=== PATIENT | female | born 1955 | race Caucasian/White ===

== ENCOUNTER 2023-10-03 05:49 | Observation (INO) ==
[2023-10-03] MEDS ORDERED: Dexamethasone IV 4 MG/ML VIAL 1 ml VIAL ONE (06:34)
[2023-10-03] MEDS ORDERED: ceFAZolin 2 GM PREMIX 2 GM/50 ML BAG ONE (06:34)
[2023-10-03] MEDS ORDERED: Tranexamic Acid 1 GM/100ML BAG 2,000 MG/200 ML BAG IV ONE (06:34)
[2023-10-03] MEDS ORDERED: Famotidine IV 10 MG/ML 2 ml VIAL (20 mg) ONE (06:35)
[2023-10-03 06:37] LABS: Rapid COVID-19 Molecular Undetected (Undetected)
[2023-10-03] MEDS: Famotidine IV 10 MG/ML 2 ml VIAL (20 mg) IV ONE (06:55)
[2023-10-03] MEDS: Dexamethasone IV 4 MG/ML VIAL 1 ml VIAL IV SLOW PU ONE (06:55)
[2023-10-03] MEDS: Lactated Ringers 1000 ml BAG 1,000 ML IV SCH ×2 (06:56→12:12)
[2023-10-03] MEDS ORDERED: fentaNYL 100 mcg/2 ml 50 MCG/ML VIAL ONE ×5 (06:56→11:37)
[2023-10-03] MEDS ORDERED: Midazolam 2 mg/2 ml VIAL 1 mg/ml 2 ml VIAL (2 mg) ONE ×2 (06:56→07:02)
[2023-10-03] MEDS ORDERED: Sevoflurane BOTTLE ONE (07:03)
[2023-10-03] MEDS ORDERED: Lidocaine 2% PF 5 ML VIAL ONE (07:03)
[2023-10-03] MEDS ORDERED: ROPIVACAINE 5 MG/ML 30 ML BTL (0.5%) ONE ×2 (07:10→07:12)
[2023-10-03] MEDS ORDERED: Glycopyrrolate IV 0.2 MG/ML 1 ML VIAL ONE (08:12)
[2023-10-03] MEDS ORDERED: HYDROmorphone 0.5 MG/0.5 ML SYRINGE ONE ×2 (08:31→08:37)
[2023-10-03] MEDS ORDERED: Lactulose 30 ml UDC PO PRN (08:36)
[2023-10-03] MEDS ORDERED: Morphine 2 MG/ML SYRINGE IV PRN (08:36)
[2023-10-03] MEDS ORDERED: Magnesium Hydroxide LIQ 30 ML UDC PO PRN (08:36)
[2023-10-03] MEDS ORDERED: Ondansetron ODT 4 mg TAB 4 MG TAB PO PRN (08:36)
[2023-10-03] MEDS ORDERED: Calcium Carb (TUMS) 500 mg CHEW TAB PO PRN (08:36)
[2023-10-03] MEDS ORDERED: Ondansetron 4 mg VIAL 2 MG/ML 2 ml VIAL IV PRN (08:36)
[2023-10-03] MEDS ORDERED: Dexmedetomidine 200 mcg/2 ml 2 ml VIAL (200 mcg) ONE (08:44)
[2023-10-03] MEDS ORDERED: Morphine 4 MG/ML VIAL (1 ml) IV PRN (08:49)
[2023-10-03] MEDS ORDERED: Naloxone 0.4 mg VIAL 0.4 mg/ml 1 ml VIAL IV PRN (08:49)
[2023-10-03] MEDS ORDERED: Ondansetron 4 mg VIAL 2 MG/ML 2 ml VIAL ONE (08:52)
[2023-10-03] MEDS ORDERED: Labetalol IV 5 MG/ML 20 ml VIAL ONE (08:59)
[2023-10-03] MEDS: fentaNYL 100 mcg/2 ml 50 MCG/ML VIAL IV PRN (10:32)
[2023-10-03] MEDS: Buffered Lidocaine 1% SYRIN 1 ml INTRADERM ONE (12:11)
[2023-10-03] MEDS: ceFAZolin 2 GM in NS PREMIX 2 GM/100 ML BAG IVPB SCH (12:11)
[2023-10-03] MEDS: Magnesium Hydroxide LIQ 30 ML UDC PO SCH (12:12)
[2023-10-03] MEDS: Vitamin THERAPEUTIC TAB PO SCH (12:12)
[2023-10-03] MEDS ORDERED: ceFAZolin 2 GM PREMIX 2 GM/100 ML BAG IVPB SCH (16:00)
[2023-10-03] MEDS: ceFAZolin 2 GM PREMIX 2 GM/50 ML BAG IVPB SCH (16:48)
[2023-10-03] MEDS: Benzocaine/Menthol LOZ PO PRN (21:12)
[2023-10-04 05:23] LABS: Hematocrit 29.9 % (35-45); Hemoglobin 10.1 g/dL (11.5-14.3); Mean Platelet Volume 9.2 fL (7.5-11.2); Platelet Count 297 10^3/uL (150-450)
[2023-10-04 05:41] LABS: Calcium 8.5 mg/dL (8.6-10.3); Creatinine, Serum 0.74 mg/dL (0.51-0.95); Potassium 3.9 mmol/L (3.5-5.0); eGFR CKD-EPI 87.5 (>60)
[2023-10-04] MEDS: Lactated Ringers 1000 ml BAG 500 ML IV ONE (10:34)
[2023-10-04 13:26] VITALS: BP 114/66
== END 2023-10-04 14:35 | disposition home or self-care (01) ==
LOC: OR 05:49 → SSU 05:49
PROVIDERS: ADMIT Orthopaedic Surgery Adult Reconstructive Orthopaedic Surgery; ATTEND Orthopaedic Surgery Adult Reconstructive Orthopaedic Surgery

== ENCOUNTER 2024-04-09 08:18 | Observation (INO) ==
[~2024-04-09 08:18] MED LIST: Metoclopramide 5 MG/ML VIAL (10 mg) IV PRN; NS 0.45% 1000 ml BAG 1,000 ML IV SCH; Naloxone 0.4 mg VIAL 0.4 mg/ml 1 ml VIAL IV PRN; Ondansetron 4 mg VIAL 2 MG/ML 2 ml VIAL IV PRN; fentaNYL 100 mcg/2 ml 50 MCG/ML VIAL IV PRN
[2024-04-09] MEDS ORDERED: ceFAZolin 2 GM PREMIX 2 GM/50 ML BAG ONE (09:09)
[2024-04-09] MEDS ORDERED: ceFAZolin 2 GM PREMIX 0 GM/0 ML BAG ONE (09:09)
[2024-04-09] MEDS ORDERED: Midazolam 2 mg/2 ml VIAL 1 mg/ml 2 ml VIAL (2 mg) ONE ×2 (09:23→10:02)
[2024-04-09] MEDS ORDERED: fentaNYL 100 mcg/2 ml 50 MCG/ML VIAL ONE (09:23)
[2024-04-09] MEDS: Lactated Ringers 1000 ml BAG 1,000 ML IV SCH ×2 (09:43→17:09)
[2024-04-09] MEDS: Buffered Lidocaine 1% SYRIN 1 ml INTRADERM ONE (09:43)
[2024-04-09 09:47] LABS: Rapid COVID-19 Molecular Undetected (Undetected)
[2024-04-09] MEDS ORDERED: ROPIVACAINE 5 MG/ML 30 ML BTL (0.5%) ONE ×2 (10:02→10:37)
[2024-04-09] MEDS ORDERED: Dexamethasone IV 4 MG/ML VIAL 1 ml VIAL ONE (10:02)
[2024-04-09] MEDS ORDERED: Tranexamic Acid 1 GM/100ML BAG 2,000 MG/200 ML BAG IV ONE (11:21)
[2024-04-09] MEDS ORDERED: KETAMINE HCL 10 MG/ML 20 ml VIAL (200 MG) ONE (11:36)
[2024-04-09] MEDS ORDERED: Ondansetron 4 mg VIAL 2 MG/ML 2 ml VIAL IV PRN (11:42)
[2024-04-09] MEDS ORDERED: Calcium Carb (TUMS) 500 mg CHEW TAB PO PRN (11:42)
[2024-04-09] MEDS ORDERED: Morphine 2 MG/ML SYRINGE IV PRN (11:42)
[2024-04-09] MEDS ORDERED: Ondansetron ODT 4 mg TAB 4 MG TAB PO PRN (11:42)
[2024-04-09] MEDS ORDERED: Lactulose 30 ml UDC PO PRN (11:42)
[2024-04-09] MEDS ORDERED: Magnesium Hydroxide LIQ 30 ML UDC PO PRN (11:42)
[2024-04-09] MEDS: Acetaminophen IV 1 GM/100ML 1,000 MG/100 ML BAG IV ONE (17:08)
[2024-04-09] MEDS: ceFAZolin 2 GM PREMIX 2 GM/50 ML BAG IV SCH ×2 (17:09→20:30)
[2024-04-09] MEDS: Magnesium Hydroxide LIQ 30 ML UDC PO SCH (23:06)
[2024-04-09] MEDS: BALSALAZIDE DISO 750 MG PO SCH (23:06)
[2024-04-10] MEDS ORDERED: Benzocaine/Menthol LOZ PO PRN (00:46)
[2024-04-10 06:38] LABS: Hematocrit 29.1 % (35-45); Hemoglobin 9.9 g/dL (11.5-14.3); Mean Platelet Volume 8.6 fL (7.5-11.2); Platelet Count 312 10^3/uL (150-450)
[2024-04-10 07:05] LABS: Calcium 8.4 mg/dL (8.6-10.3); Creatinine, Serum 0.65 mg/dL (0.51-0.95); Potassium 3.9 mmol/L (3.5-5.0); eGFR CKD-EPI 95.2 (>60)
[2024-04-10] MEDS: Vitamin THERAPEUTIC TAB PO SCH (07:51)
[2024-04-10 09:50] VITALS: BP 92/52
[2024-04-10] MEDS: Lactated Ringers 1000 ml BAG 500 ML IV ONE (11:26)
== END 2024-04-10 13:27 | disposition home or self-care (01) ==
LOC: SSU 08:18 → OR 08:18
PROVIDERS: ADMIT Orthopaedic Surgery Adult Reconstructive Orthopaedic Surgery; ATTEND Orthopaedic Surgery Adult Reconstructive Orthopaedic Surgery